=== PATIENT | female | born 1955 | race Caucasian/White ===

== ENCOUNTER 2017-03-11 05:35 | Day surgery (SDC) | payer BC, OTHER ==
[~2017-03-11] VITALS: Ht 162.6 cm; Wt 115.7 kg
--- NOTE | ~2017-03-11 | O ---
[facility] [place] [address] OPERATIVE REPORT Name: LINCOLN COLES Room #: DEP [facility].#: [id number] Admission: 03/11/17 Attend Phys: Ronal Jerry MD Discharge: 03/11/17 Date of : 51 Report #: [id number] THIS REPORT FOR: //name// CC: Ronal Albert MD DATE OF SERVICE: 03/11/2017 PREOPERATIVE DIAGNOSIS: Left breast cancer, status post chemotherapy, here for removal of Port-A-Cath. POSTOPERATIVE DIAGNOSIS: Left breast cancer, status post chemotherapy, here for removal of Port-A-Cath. PROCEDURES PERFORMED: Removal of Port-A-Cath. ANESTHESIA: IV sedation, local 0.25% Marcaine. COMPLICATIONS: None. ESTIMATED BLOOD LOSS: 5 mL. PROCEDURE NOTE: With the patient under IV sedation, chest is prepped and draped in sterile fashion. The previous incision was excised. Incision carried to the subcutaneous tissue down to the part where the catheter is attached to the port. The catheter was free from the tunnel and the catheter was withdrawn. The entire catheter was removed with the marking at 0 where the tip of the catheter identified as marking of 0. A 0.25% Marcaine was used to anesthetize the deeper tissue, the port with the surrounding capsule was excised with cautery. Port was free without difficulty. Irrigation was performed. The subcutaneous tissue was closed with 4-0 PDS. Skin was closed with 5-0 PDS in running subcuticular fashion. Dermabond was applied, 4x4, OpSite used for dressing. The patient tolerated the procedure well and was taken to recovery room. By: [id number] Ronal Jerry MD /nt
[~2017-03-11 05:35] MED LIST: ALLEGRA ALLERG180 MG PO; ANASTROZOLE1 MG PO; BYSTOLIC 5 MG5 M1 PO; CALCIUM WITH V1 EAC1 PO; CORTIZONE-528 GM TP; DEPAKOTE ER500 MG PO; DICLOFENAC SODI75 MG PO; GLUCOSAMINE CH1 EA10 PO; GLUCOSAMINE H1500 MG PO; MELATONIN5 M4 PO; NORCO 5-325 TA1 EACH PO; PREVACID30 M2 PO; PREVACID30 MG PO; PROZAC20 MG PO; SIMVASTATIN40 MG PO; SSD CREAM 1% 5050 GM TOP; WELLBUTRIN SR150 MG PO
[2017-03-11 07:52] VITALS: BP 156/85
[2017-03-11 07:54] LABS: HEMATOCRIT 35.7 % (37.0-47.0); HEMOGLOBIN 11.6 gm/dL (12.0-15.0)
[2017-03-11] MEDS ORDERED: NORCO 5-325 TA1 EACH PO (09:51)
[2017-03-11 10:04] VITALS: BP 156/85
== END 2017-03-11 10:45 | disposition home or self-care (01) ==
LOC: OR 05:35 → TBA 05:35 → OR 10:45
PROVIDERS: Surgery
DX: C50.912 Malignant neoplasm of unspecified site of left female breast (principal); I10 Essential (primary) hypertension; K21.9 Gastro-esophageal reflux disease without esophagitis; E78.00 Pure hypercholesterolemia, unspecified; F32.9 Major depressive disorder, single episode, unspecified; M19.90 Unspecified osteoarthritis, unspecified site
CPT/HCPCS: 50010; 50101; 50386; 50403; 54118; 56525; 56526; 62110; 62850; 70005